=== PATIENT | female | born 1965 | race Caucasian/White ===

== ENCOUNTER 2019-02-27 05:49 | Day surgery (SDC) | payer OTHER, SELFPAY ==
[2019-02-27] VITALS (12 sets, daily range): BP systolic 95–134; BP diastolic 46–75; PULSE 50–60; RESP 15–16; TEMP 35.9–36.1; O2SAT 96–100; BMI 26.9
[2019-02-27] MEDS: Lactated Ringers 1,000 ML 75 ML IV (06:18)
--- NOTE | 2019-02-27 06:56 | PCM.HP.STD ---
Problem List (1) Screening for intestinal cancer Status: Acute History of Present Illness Date of Admission: 02/27/19 The patient is a 53 year old F who presents today for screening colonoscopy. He has never had a previous screening colonoscopy. She denies bright red blood per rectum or melena. No abdominal pain. No weight loss. She is a chronic cigarette smoker Past Medical History Allergies amoxicillin [Amoxicillin] Allergy (Verified 02/27/19 06:13) Unknown erythromycin base [Erythromycin Base] Allergy (Verified 02/27/19 06:13) Unknown Penicillins Allergy (Verified 02/27/19 06:13) Unknown Sulfa (Sulfonamide Antibiotics) Allergy (Verified 02/27/19 06:13) Shortness of breath tetracycline [Tetracycline] Allergy (Verified 02/27/19 06:13) Unknown Home Medications: Ambulatory Orders Medication Instructions Recorded Escitalopram Oxalate [Lexapro] 10 mg PO DAILY 02/26/19 Smoking Status: Current every day smoker Tobacco Use: Cigarettes Review of Systems HEENT: Denies: Difficulty Swallowing Cardiovascular: Denies: Chest Pain Gastrointestinal: Denies: Abdominal Pain, Hematochezia, Melena Endocrine: Denies: Change in Body Habitus VTE Information - Inpt Only VTE Present on Admission: No Patient Problems: Active and Suspected Problems Screening for intestinal cancer (Acute) - Physical Exam Vital Signs Temp Pulse Resp BP Pulse Ox 96.9 F L 60 15 120/65 98 02/27/19 06:13 02/27/19 06:13 02/27/19 06:13 02/27/19 06:13 02/27/19 06:13 Oxygen Delivery Method Room Air Weight: 174 lb 2.643 oz Body Mass Index (BMI) 26.9 Assessment/Plan All Active Problems Screening for intestinal cancer (Acute) I recommended the patient is screening colonoscopy with possible biopsy or polypectomy is indicated. She is aware of the technique, benefits, risks and alternatives. She has had an opportunity to ask and have questions answered. She presents via our open access program today. We will proceed as noted. Aniceto Hedrick M.D., F.A.C.S.
--- NOTE | 2019-02-27 07:00 | COLBX_PTH ---
PATIENT: INDU CARLSON LOC: EN U#:[id number] AGE/SX: 53/F ROOM: RE02/27/[address]: Dr. Aniceto Hedrick MD : 1965 BED: DIS: 02/27/2019 SPEC #: [id number] RECD: 02/27/19 10:08 STATUS: ANA KRISTOPHER #: [id number] BRITT: 02/27/19 07:[address]: Aniceto Hedrick DEPT: SURGICAL PATHOLOGY RECD BY: Bessy Mccabe ENTERED: 02/27/19 11:58 SP TYPE: COLON BX OTHR DR: Dr. Adriel Sanchez DO Tissues: Transverse colon Procedures: Surgery Specimen Level IV HEADER OPERATION: Colonoscopy - open access (MOD) PRE-OP DIAGNOSIS: Screening colonoscopy TISSUE SUBMITTED: Distal transverse polyp biopsy MICROSCOPIC DIAGNOSIS Distal transverse colon polyp, biopsy: Tubular adenoma. AM:rich 03/02/19 MICROSCOPIC DESCRIPTION Slides are reviewed. GROSS DESCRIPTION Received in fixative is one container labeled with the patient's name and designated distal transverse biopsy. The specimen consists of one irregular fragment of light barnett soft tissue that measures 0.3 x 0.3 x 0.1 cm. The specimen is totally submitted in one cassette. / AM:rich 02/27/19 TC:5 CPT: 14715
--- NOTE | 2019-02-27 07:34 | OP.ENDO_ITS ---
02/27/2019 Adriel Sanchez [address] [place] [address] Re : Colonoscopy procedure for Yelena Greenfield Dear Dr. Sanchez This procedure was performed on Wednesday, February 27, 2019. My impressions and recommendations are as follows: Impressions : - Hemorrhoids found on perianal exam. - Diverticulosis in the sigmoid colon. - One 4 mm polyp in the distal transverse colon, removed with a cold biopsy forceps. Resected and retrieved. Recommendations : - Await pathology results. - Repeat colonoscopy in 5 years for surveillance. - Telephone my office for pathology results in 1 week. - Continue present medications. My findings are described in the full procedure note, which is enclosed. If I can be of further assistance, please feel free to contact me at Doctor phone number(s): Work: . Sincerely, Aniceto Hedrick MD 02/27/2019 7:34:12 AM This report has been signed electronically.
== END 2019-02-27 08:12 | disposition home or self-care (01) ==
LOC: EN 05:51 → AC 05:53
PROVIDERS: Family Provider Family Medicine; PCP Family Medicine; Referring Provider Surgery; Visit Provider Surgery
PROC: 0DJD8ZZ Inspection of Lower Intestinal Tract, Via Natural or Artificial Opening Endoscopic (ICD-10-PCS; CPT 45378; principal; 2019-02-27 06:55)
DX: Z12.11 Encounter for screening for malignant neoplasm of colon (principal); D12.3 Benign neoplasm of transverse colon; K64.9 Unspecified hemorrhoids; K57.30 Diverticulosis of large intestine without perforation or abscess without bleeding; F17.210 Nicotine dependence, cigarettes, uncomplicated
CPT/HCPCS: 45380; 88305; 99152; 99153; J7120

== ENCOUNTER → 2019-07-14 08:08 | Outpatient (CLI) | payer OTHER, SELFPAY ==
[2019-07-14 07:46] VITALS: BMI 26.9
--- NOTE | 2019-07-14 08:10 | RAD_ITS ---
STUDY: X-RAY CHEST REASON FOR EXAM: Female, 54 years old. Chest pain, shortness of breath and congestion. Former smoker. TECHNIQUE: PA and lateral views of the chest. COMPARISON: None. FINDINGS: The lungs are clear and expanded. There is no demonstrated pleural abnormality. Normal size heart. Normal mediastinum and lexx. Normal visualized pulmonary arteries. Normal visualized aortic arch and descending thoracic aorta. Normal visualized thoracic spine. Normal visualized ribs, clavicles, and shoulders. There is no demonstrated abnormality of the visualized soft tissue structures of the upper abdomen. RAD/Chest PA and Lateral IMPRESSION: No acute cardiopulmonary disease. Electronically Signed: Cristian Emerson DO at 18:28 EST Tel [phone], Service support ,
== END ==
PROVIDERS: PCP Student in an Organized Health Care Education/Training Program; Referring Provider Internal Medicine Critical Care Medicine; Visit Provider Internal Medicine Critical Care Medicine
DX: R06.02 Shortness of breath (principal)
CPT/HCPCS: 71046

== ENCOUNTER → 2019-11-05 06:43 | Outpatient (CLI) | payer OTHER, SELFPAY ==
[2019-07-14 07:46] VITALS: BMI 26.9
--- NOTE | 2019-11-06 09:31 | PFT ---
INTRODUCTION: The patient is a 54-year-old female that presents for pulmonary function studies secondary to a diagnosis of dyspnea. Respiratory therapy reports good patient effort. Bronchodilators were used during testing. INTERPRETATION: Forced expiration spirometry demonstrates no evidence of a large airways obstructive ventilatory defect. There was no significant response to aerosolized bronchodilators. Spirograms are of good quality and plateau normally. The respiratory flow volume loop appears normal. Body plethysmography was performed and reveals lung volumes to be within normal limits. Diffusing capacity by single breath CO is also within normal limits. IMPRESSION: Grossly normal pulmonary function studies.
== END ==
PROVIDERS: PCP Student in an Organized Health Care Education/Training Program; Referring Provider Internal Medicine Critical Care Medicine; Visit Provider Internal Medicine Critical Care Medicine
DX: R06.02 Shortness of breath (principal)
CPT/HCPCS: 94060; 94726; 94729

== ENCOUNTER 2021-11-16 10:59 | Day surgery (SDC) | payer OTHER, SELFPAY ==
[2021-11-16] VITALS (7 sets, daily range): BP systolic 93–130; BP diastolic 53–65; PULSE 57–63; RESP 16; TEMP 36.1–36.3; O2SAT 97–99; BMI 28.5
[2021-11-16] MEDS: Lactated Ringers 1,000 ML 15 ML IV (11:23)
--- NOTE | 2021-11-16 11:29 | PCM.HP.BLA ---
History and Physical Date of Admission: 11/16/21 INDU CARLSON, is a 56 F who presents to the office today for positive Esoguard result.? A positive Esoguard result has been associated with the presence of nondysplastic and dysplastic Song's esophagus as well as esophageal adenocarcinoma.? Esoguard test was done as screening for history of heartburn.? She takes Tums as needed, about 1-2x per month for burning in chest. Occas discomfort across upper abd that goes along with the burning. No dysphagia.? She has chronic nausea since her , she uses promethazine and Zofran as needed.? She reports rare vomiting from the nausea, no hematemesis.? No bowel concerns.? She denies diarrhea, constipation, melena or hematochezia.? She had a normal screening colonoscopy in 2019. ROS Const Constitutional: No fatigue, fever(s), headache(s), weight change, sleep problems, abnormal sleep pattern or change in appetite ENT ENT: No headache(s), difficulty swallowing, hoarseness or sore throat Resp Respiratory: No cough, hemoptysis or shortness of breath Cardio Cardiology: No chest pain at rest or generalized swelling Gastro GI: Positive for bloating, heartburn and nausea/dyspepsia; No abdominal pain, belching, change in bowel habits, change in stool character, coffee ground emesis, constipation, cramping, diarrhea, difficulty swallowing, feeling full early, excessive flatus, incontinent of stools, Vomiting blood/hematemesis, Blood in stool, loose stools, Black,tarry stools, pain with swallowing or vomiting Musc Musculoskeletal: No joint pain, back pain, joint swelling, numbness or tingling Skin Skin: No itchy eyes or rash Neuro Neurology: No behavioral changes, confusion, headache(s), numbness or tingling Psych Psychiatric: No abnormal sleep pattern, No anxiety, No behavioral changes, No change in appetite, No confusion and No depression Endo Endocrine: No cold intolerance, fatigue, heat intolerance, increased thirst/drinking or weight change Aller/Imm Allergy/Immunologic: No food intolerance or itchy eyes Garry/Lymp Hematologic/Lymphatic: No easy bleeding, easy bruising or enlarged lymph nodes Exam Const General: healthy appearing, well developed and well groomed Quality Reporting Tobacco Screening ([facility]) Smoking Status: Former smoker Assessment and Plan Assessment and Plan (1) Abnormality on screening test: ?Status:?Acute (2) Heartburn: ?Status:?Acute ?Plan: 56-year-old female with intermittent heartburn has a positive Esoguard screening test therefore she is scheduled for EGD to evaluate for Song's esophagus or esophageal malignancy.? Her EGD is scheduled for next week.? Follow-up 2 weeks after to discuss results.? She declines PPI prescription at this time. I have re-examined the patient. There are no clinical changes since date of exam.
--- NOTE | 2021-11-16 11:55 | OP.EGD_ITS ---
Patient Name: Yelena Greenfield Procedure Date: 11/16/2021 11:24 AM Date of : 1965 Age: 56 Procedure: Upper GI endoscopy Indications: Heartburn Providers: Mack Turner DO Referring MD: Mack Turner DO Medicines: Monitored Anesthesia Care Patient Profile: This is a 56 year old female. Refer to note in patient chart for documentation of history and physical. Patient has symptoms. Complications: No immediate complications. Procedure: Pre-Anesthesia Assessment: - Prior to the procedure, a History and Physical was performed, and patient medications and allergies were reviewed. The patient is competent. The risks and benefits of the procedure and the sedation options and risks were discussed with the patient. All questions were answered and informed consent was obtained. Patient identification and proposed procedure were verified by the physician in the pre-procedure area. Mental Status Examination: alert and oriented. Airway Examination: normal oropharyngeal airway and neck mobility. Respiratory Examination: clear to auscultation. CV Examination: normal. Prophylactic Antibiotics: The patient does not require prophylactic antibiotics. Prior Anticoagulants: The patient has taken no previous anticoagulant or antiplatelet agents. After reviewing the risks and benefits, the patient was deemed in satisfactory condition to undergo the procedure. The anesthesia plan was to use moderate sedation / analgesia (conscious sedation). Immediately prior to administration of medications, the patient was re-assessed for adequacy to receive sedatives. The heart rate, respiratory rate, oxygen saturations, blood pressure, adequacy of pulmonary ventilation, and response to care were monitored throughout the procedure. The physical status of the patient was re-assessed after the procedure. After obtaining informed consent, the endoscope was passed under direct vision. Throughout the procedure, the patient's blood pressure, pulse, and oxygen saturations were monitored continuously. The gastroscope was introduced through the mouth, and advanced to the second part of duodenum. The upper GI endoscopy was accomplished without difficulty. The patient tolerated the procedure well. Scope In: 11:44:05 AM Scope Out: 11:49:06 AM Total Procedure Duration Time 0 hours 5 minutes 1 second Findings: The Z-line was irregular and was found 38 cm from the incisors. Biopsies were taken with a cold forceps for histology. Verification of patient identification for the specimen was done. Estimated blood loss was minimal. A small hiatal hernia was present. No other significant abnormalities were identified in a careful examination of the stomach. The second portion of the duodenum was normal. Impression: - Z-line irregular, 38 cm from the incisors. Biopsied. - Small hiatal hernia. - Normal second portion of the duodenum. Recommendation: - Discharge patient to home. - Resume previous diet. - Continue present medications. - Await pathology results. Procedure Code(s): --- Professional --- 56550, Esophagogastroduodenoscopy, flexible, transoral; with biopsy, single or multiple CPT copyright 2017 [employer]. All rights reserved. The codes documented in this report are preliminary and upon air traffic control operator review may be revised to meet current compliance requirements. Mack Turner DO 11/16/2021 11:54:47 AM This report has been signed electronically. Number of Addenda: 1 Note Initiated On: 11/16/2021 11:24 AM Addendum Number: 1 Addendum Date: 03/06/2022 6:11:33 AM MAC was used as sedation for this procedure. Mack Turner DO 03/06/2022 6:11:37 AM This report has been signed electronically.
--- NOTE | 2021-11-16 11:56 | OP.CCLET_ITS ---
03/06/2022 Tod Kelly Do Re : Upper GI endoscopy procedure for Yelena Kwanr Robin This procedure was performed on November. My impressions and recommendations are as follows: Impressions : - Z-line irregular, 38 cm from the incisors. Biopsied. - Small hiatal hernia. - Normal second portion of the duodenum. Recommendations : - Discharge patient to home. - Resume previous diet. - Continue present medications. - Await pathology results. My findings are described in the full procedure note, which is enclosed. If I can be of further assistance, please feel free to contact me at . Sincerely, Mack Turner DO 11/16/2021 11:54:47 AM This report has been signed electronically.
--- NOTE | 2021-11-16 12:00 | EGD_PTH ---
PATIENT: INDU CARLSON LOC: [facility]UL U#:[id number] AGE/SX: 56/F ROOM: RE11/16/[address]: Dr. Mack Turner DO : 1965 BED: DIS: 11/16/2021 SPEC #: [id number] RECD: 11/16/21 12:13 STATUS: ANA KRISTOPHER #: [id number] BRITT: 11/16/21 12:[address]: Mack Turner DEPT: SURGICAL PATHOLOGY RECD BY: Maylin Mills ENTERED: 11/16/21 12:59 SP TYPE: EGD BIOPSY OT DR: Dr. Tod Kelly DO Tissues: Esophagus, NOS Procedures: Special Stain Group II Surgery Specimen Level IV Alcian Blue/PAS (control) HEADER OPERATION: EGD ([facility] [place] biopsy PRE-OP DIAGNOSIS: Abnormality on screening test, heartburn TISSUE SUBMITTED: Distal esophagus biopsy MICROSCOPIC DIAGNOSIS Distal esophagus, biopsy: Fragments of gastroesophageal mucosa with chronic inflammation. Intestinal metaplasia (goblet cell metaplasia) not identified. See comment. GIOVANY:rich 11/17/2021 COMMENT Alcian blue/PAS stain with matched control is used in the evaluation of the specimen. MICROSCOPIC DESCRIPTION Slides are reviewed. GROSS DESCRIPTION Received in fixative is one container labeled with the patient's name and designated distal esophagus biopsy. The specimen consists of multiple irregular fragments of light barnett soft tissue that in aggregate measure 1.5 x 0.5 x 0.1 cm. The specimen is totally submitted in one cassette. / GIOVANY:rich 11/16/2021 TC:3 CPT: 27766, 40842
== END 2021-11-16 12:33 | disposition home or self-care (01) ==
LOC: EN 10:59 → AC 11:03
PROVIDERS: PCP Student in an Organized Health Care Education/Training Program; Referring Provider Internal Medicine Gastroenterology; Visit Provider Internal Medicine Gastroenterology
PROC: 0DJ08ZZ Inspection of Upper Intestinal Tract, Via Natural or Artificial Opening Endoscopic (ICD-10-PCS; CPT 43235; principal; 2021-11-16 11:55)
DX: K21.00 Gastro-esophageal reflux disease with esophagitis, without bleeding (principal); K44.9 Diaphragmatic hernia without obstruction or gangrene; F17.200 Nicotine dependence, unspecified, uncomplicated
CPT/HCPCS: 43239; 88305; 88313; J7120; J2405